=== PATIENT | male | born 1995 | race Caucasian/White ===

== ENCOUNTER 2024-04-24 10:30 | Inpatient (IN) | payer OTHER, SELFPAY ==
[2024-04-24] VITALS (12 sets, daily range): BP systolic 143–164; BP diastolic 90–117; BMI 19.5; BMI 29.0
[2024-04-24 06:40] LABS: % Basophils 0.2 % (0-2); % Immature Granulocytes 0.8 % (0-0.5); % Lymphocytes 6.1 % (20.5-51.1); % Monocytes 10.4 % (1.7-9.3); % Neutrophils 82.5 % (42.2-75.2); Absolute Immature Granulocytes 0.1 10^3/uL (0-0.05); Absolute Monocytes 1.7 10^3/uL (0.1-0.6); Absolute Neutrophils 13.7 10^3/uL (1.4-6.5); Hemoglobin 17.2 g/dL (13.0-18.0); Mean Corp Hgb Conc. 37.4 g/dL (33.0-37.0); Mean Corpuscular Hgb 32.7 pg (27.0-31.0); Mean Corpuscular Volume 87.5 fL (80.0-94.0); Mean Platelet Volume 8.5 fL (7.4-10.4); Nucleated Red Blood Cells % 0 % (-); Platelet Count 218 10^3/uL (130-400); Red Blood Cell Count 5.26 10^6/uL (4.70-6.10); Red Cell Dist. Width 11.5 % (11.5-14.5); White Blood Cell Count 16.6 10^3/uL (4.8-10.8)
--- NOTE | 2024-04-24 06:52 | ED.GENMED ---
History of Present Illness
General
Chief Complaint: Abdominal Symptoms
Source: patient
Exam Limitations: none
Time Seen by Provider: 04/24/24 06:46
History of Present Illness
History of Present Illness:
See MDM
Past History
Past History
ED Past Medical History: Negative Asthma, HTN, Hypercholesterolemia or NIDDM
ED Past Surgical History: None
Social History
Tobacco: Smoker
Alcohol: Occasional
Personal: Single
Living: with family
Phy Exam
Physical Exam
Physical Exam:
See MDM
Sepsis
Sepsis Screening
Sepsis Assessment: Sepsis Ruled Out
Sepsis Screen
Sepsis Screen: Sepsis Ruled Out
Date: 04/24/24
Time: 08:59
Course
Orders/Labs/Results
Orders:
Orders
04/24/24 06:30
Electrocardiogram (*1) Urgent
Reason for Study: Chest Pain
EKG- Treatment ONCE
04/24/24 06:31
Complete Blood Count/With Diff Urgent
Comprehensive Metabolic Panel Urgent
Lipase Urgent
Comment: ADD ON
04/24/24 06:51
Add On- LAB Urgent
Tests Added?: lipase
0.9% Sodium Chloride 1000 ml [Nss] 1,000 ml IV BOLUS
Ketorolac [Toradol] 30 mg IV NOW STA
Ondansetron Injectable [Zofran] 4 mg IV NOW STA
04/24/24 06:52
CT Abd/pelvis W Iv Cont Urgent
Comment:
Reason For Exam: general abd pain, vomiting
04/24/24 07:46
0.9% Sodium Chloride 1000 ml [Nss] 1,000 ml IV BOLUS
Morphine Sulfate 4 mg IV NOW STA
Abnormal Lab Results
04/24/24
06:31
WBC 16.6 H 10^3/uL
(4.8-10.8)
MCH 32.7 H pg
(27.0-31.0)
MCHC 37.4 H g/dL
(33.0-37.0)
Abs Immat Gran (auto) 0.1 H 10^3/uL
(0-0.05)
Absolute Neuts (auto) 13.7 H 10^3/uL
(1.4-6.5)
Absolute Lymphs (auto) 1.0 L 10^3/uL
(1.2-3.4)
Absolute Monos (auto) 1.7 H 10^3/uL
(0.1-0.6)
Immature Gran % 0.8 H %
(0-0.5)
Neutrophils % 82.5 H %
(42.2-75.2)
Lymphocytes % 6.1 L %
(20.5-51.1)
Monocytes % 10.4 H %
(1.7-9.3)
Sodium 131 L mmol/L
(135-145)
Chloride 96 L mmol/L
(98-107)
Carbon Dioxide 21 L mmol/L
(22-30)
Glucose 166 H mg/dl
(70-99)
Total Bilirubin 2.3 H mg/dl
(0.2-1.3)
ALT 68 H U/L
(0-50)
Total Protein 8.3 H g/dl
(6.3-8.2)
Albumin 5.1 H g/dl
(3.5-5.0)
Lipase 1880 H* U/L
(23-300)
04/24/24 06:31
04/24/24 06:31
Vital Signs
Initial and Last Documented VS:
Initial Vital Signs
Temp Pulse Resp BP Pulse Ox
98.3 F 130 22 143/106 99
04/24/24 05:55 12/19/24 05:55 04/24/24 05:55 04/24/24 05:55 04/24/24 05:55
Last Documented Vital Signs
Temp Pulse Resp BP Pulse Ox
98.3 F 104 18 154/102 96
04/24/24 05:55 04/24/24 08:30 04/24/24 08:30 04/24/24 08:11 04/24/24 08:30
MDM/Problems Addressed
Differential Diagnosis Includes:
HPI and MDM Narrative:
28-year-old male presenting for evaluation of nausea, vomiting and generalized abdominal pain. He did follow-up with his primary care doctor and was prescribed Zofran ODT. He was told to go to urgency department if he continues to vomit despite
taking the medicine. Patient states he has been unable to keep any fluid down and has lost 5 pounds. On exam, he is uncomfortable and clinically dehydrated. He is tachycardic due to discomfort and dehydration. He has abdominal bloating with
generalized tenderness. Given the ongoing symptoms, will give IV fluids, IV Zofran and IV Toradol. Due to the abdominal pain, will obtain CT abdomen/pelvis. He is aware that the ongoing diagnosis is likely viral gastroenteritis
Physical exam
General: Mildly uncomfortable
HEENT: protecting airway. Dry mucous membrane
Neck: appears supple
CV: No evidence of cyanosis. Tachycardic
Resp: No accessory muscle use
Abd: Abdominal bloating and generalized tenderness without localized rebound
Extremities: No deformities
Neuro: alert
Psych: Normal affect
Skin: Intact
Problems Addressed including Acute and Chronic Conditions affecting care:
1. Nausea, vomiting abdominal pain
Acuity: acute
Prognosis: stable
Details: Likely in the viral gastroenteritis. Given his inability to hold down any fluids, will give IV fluids. Will obtain CT abdomen/pelvis
Updates
Patient found to have an elevated lipase level. I question his alcohol intake. Patient states that he recently started drinking more alcohol. Patient still tachycardic and uncomfortable. Will provide more IV fluids and will give IV morphine to
treat pancreatitis
Differential Diagnosis (but not limited to): Enteritis, colitis, acute appendicitis
Testing considered: Chest x-ray
Drug therapy (if applicable): OTC meds, please see d/c instruction regarding Rx drugs
Amount and/or Complexity of Data Reviewed
Clinical info obtained from: Patient
External data reviewed: N/A
Labs I independently reviewed (but not limited to): Leukocytosis, elevated lipase
Radiology: The CT scan was personally and independently reviewed. In addition, official CT report reviewed.
Pulse Ox: not hypoxic
EKG independently reviewed: Sinus tachycardia, normal axis, no STEMI
Manager Architectural: Sinus tachycardia
Critical Care: N/A
Risk of Complication:
Social Determinants of health: Good social support
Discussed with other providers: N/A
Escalation of Care includes Admit/Obs: After being observed in the Emergency Department, pt stable for discharge.
Occasional wrong word or 'sound a like' substitutions may have occurred due to the inherent limitations of voice recognition software. Read the chart carefully and recognize, using context, where substitutions have occurred.
*Critical Care Note
Total Time (30-74mins, 75-104mins- exclusive of procedures): Not Applicable
ED Attending Note
-
Portions of this chart may have been created with voice recognition software.� Occasional wrong word or��sound alike� substitutions may have occurred due to the inherent limitations of voice recognition software.
Discharge Plan
Departure
Patient Disposition: Admit
Date of Disposition: 04/24/24
Time of Disposition: 08:58
Admit to: Med/Surg
Presentation/result/management discussed w/ accepting MD/DO: Hospitalist
Discharge Problem:
Pancreatitis
Prescriptions:
No Action
trazodone 50 mg Tablet
50 mg PO HS
levetiracetam [Keppra] 500 mg Tablet
250 mg PO DAILY
clonazepam 0.5 mg Tablet
0.5 mg PO DAILYPRN PRN (Reason: anixety)
ondansetron [Zofran ODT] 4 mg Tablet,Disintegrating
4 mg PO Q6HPRN PRN (Reason: nausea)
buspirone [BuSpar] 15 mg Tablet
15 mg PO BID
Referrals:
Shaji Amaro MD [Family Provider] -
Interventions
Interventions:
*Risk Screen - Suicide Last Done: 04/24/24 06:14
*General Assessment Last Done: 04/24/24 05:55
*Neglect/Abuse Screening Last Done: 04/24/24 06:14
ED- Fall Risk Assessment Last Done: 04/24/24 06:14
*ED COVID-19 Vaccine History Last Done: 04/24/24 05:55
BY-Jqprkc-Arqpkpaixs Assessment Last Done: 04/24/24 07:30
Discharge Date and Time
Print Language: ETHIOPIAN
[2024-04-24 06:58] LABS: ALT (SGPT) 68 U/L (0-50); AST (SGOT) 57 U/L (17-59); Albumin 5.1 g/dl (3.5-5.0); Alkaline Phosphatase 72 U/L (38-126); Blood Urea Nitrogen 20 mg/dl (9-20); Calcium 9.7 mg/dl (8.4-10.2); Carbon Dioxide 21 mmol/L (22-30); Chloride 96 mmol/L (98-107); Estimated Creatinine Clearance 116 ml/min; Glucose 166 mg/dl (70-99); Potassium 3.7 mmol/L (3.5-5.1); Sodium 131 mmol/L (135-145); Total Bilirubin 2.3 mg/dl (0.2-1.3); Total Protein 8.3 g/dl (6.3-8.2); eGFR > 60.00
[2024-04-24] MEDS: ZOFRAN 4 MG IV ×2 (07:01→20:17)
[2024-04-24] MEDS: TORADOL 30 MG IV (07:01)
[2024-04-24] MEDS: NSS 1000 IV ×4 (07:01→17:31)
[2024-04-24 07:18] LABS: Lipase 1880 U/L (23-300)
[2024-04-24] MEDS: MORPHINE SULFATE 4 MG IV (07:54)
--- NOTE | 2024-04-24 09:20 | HPS.HSE ---
Addendum entered and electronically signed by Walter Perry MD 04/24/24 23:31:
Attending Addendum-
I performed a history and physical exam of the patient and discussed his management with the resident. I reviewed the resident's note and agree with the documented findings and plan of care CC/HPI- Presents to ED with 2 days of intractable vomitting
nausea and abd pain. Has recently come off a binge of ETOH use over last weekend and 'slowed down' by drinking etoh seltzers. Last drink two days ago per patient. Seen with sig other. Feels thirsty and abd pain greatly improved after pain meds. No
fevers chills. Full 12 point ROS reviewed and negative except as documented Exam- vitals reviewed in EMR GEN-NAD heart tachycardic lungs clear abd soft mildly distended LE no edema
Plan:
# SIRS from Acute Pancreatitis
- NPO
- aggressive IVF resuscitation
- pain control
- CT a/p-Pancreatic/peripancreatic inflammatory changes compatible with acute pancreatitis without accompanying well-formed abnormal focal fluid collection to suggest a pseudocyst.
- no indication for abx
- repeat lipase in am
# AUD
- hx of w/d seizures x 2
- high risk W/D
- MSAS
- c/s SW and [facility]
# Nicotine Abuse via Vape
- advised to quit
# Anxiety
- cont buspar clonazepam and trazodone
- PDMP reviewed
# Hyponatremia
- from etoh abuse
- trend BMP
- cont IVF
# Seizure D/O from ETOH w/d
- cont keppra
# Leukocytosis
- from stress/inflammation
- repeat CBC in am
# Marijuana use
CODE- Full
Time spent coordinating care, review of plan of care with resident, personally reviewed previous records in EMR, med rec, labs, radiology, d/w nursing, GF�- 78 mins
Original Note:
Family Physician
<Cesia Metzger DO, Resident - Last Filed: 04/24/24 14:47>
-
Family Physician: Shaji Amaro MD
Chief Complaint
<Cesia Metzger DO, Resident - Last Filed: 04/24/24 14:47>
-
Vomiting, abdominal pain
History of Present Illness
Mr. Nilo Lo is a 28yo male pmh fatty liver disease, seizures from alcohol withdrawal, and alcohol use disorder being admitted for acute pancreatitis. He used to drink a 750-mL bottle of vodka daily, but has cut it back to a 200-300mL flask.
His last drink was an alcoholic seltzer on Sunday. This is because he started vomiting uncontrollably Sunday. He has been unable to keep liquids down. He has diffuse abdominal pain and feels his stomach is tense and bloated. He feels
dehydrated and warm. He also has a sharp pain in his stomach when he breathes too deeply. +fatigue, bloating, tremors. -hallucinations
Medical History
<Cesia Metzger DO, Resident - Last Filed: 04/24/24 14:47>
Past Medical History
Past Medical History: Reports Seizures (from alcohol withdrawal) and Other (fatty liver disease, alcohol use disorder, anxiety)
Past Surgical History: Reports Other (hernia at 3yrs old)
Social History
Tobacco: Vaping
Alcohol: Chronic Alcoholic
Drug: Former User and Marijuana
Personal:
Living: With Family
Employment: Employed (general warehouse worker)
Family History
Family History: Not pertinent
Allergies / Home Medications
Allergies reflects when Allergies were last updated in [facility].
Home Medications with original date entered in [facility]
Allergy/Medication List:
Allergies
Allergy/AdvReac Type Severity Reaction Status Date / Time
No Known Allergies Allergy Unverified 05/07/16 12:17
Home Medications
buspirone 15 mg tablet 15 mg PO BID Neurological Condition 04/24/24
clonazepam 0.5 mg tablet 0.5 mg PO DAILYPRN PRN anixety 04/24/24
levetiracetam 500 mg tablet (Keppra) 250 mg PO DAILY Neurological Condition 04/24/24
ondansetron 4 mg disintegrating tablet 4 mg PO Q6HPRN PRN nausea 04/24/24
trazodone 50 mg tablet 50 mg PO HS Neurological Condition 04/24/24
Review of Systems
<Cesia Metzger DO, Resident - Last Filed: 04/24/24 14:47>
-
Constitutional: Reports Weight Loss, Fatigue and Sleep Disturbance
EENT: Reports No Symptoms
Respiratory: Reports No Symptoms
Cardiac: Reports No Symptoms
Abdomen/GI: Reports Abdominal Pain, Nausea, Vomiting and Other (no hematochezia); Denies Diarrhea, Constipated or Bloody Stools
: Reports No Symptoms
Musculoskeletal: Reports No Symptoms
Skin: Reports No Symptoms
Neurological: Reports No Symptoms
Endocrine: Reports No Symptoms
Hematologic/Lymphatic: Reports No Symptoms
Psych: Reports No Symptoms
Physical Exam
<Cesia Metzger DO, Resident - Last Filed: 04/24/24 14:47>
Vital Signs
Vital Signs
Temp Pulse Resp BP Pulse Ox
98.3 F 104 18 154/102 96
04/24/24 05:55 04/24/24 08:30 04/24/24 08:30 04/24/24 08:11 04/24/24 08:30
Physical Exam
General: Well Developed and Well Nourished
HEENT: NormoCephalic, Anicteric, Atraumatic, PERRLA and Other (dry mucus membranes)
Respiratory: Clear and Non Labored Respirations
Cardiac: S1/S2, Regular Rhythm and Tachycardia; No Murmur, Rub, Gallop or Peripheral Edema
GI: Tender (diffuse, LLQ) and Distended
Musculoskeletal: No Clubbing, No Cyanosis and No Edema
Skin: Warm and Other (diaphoretic)
Neuro: AO x 3
Psych: Calm
Laboratory Results
<Cesia Metzger DO, Resident - Last Filed: 04/24/24 14:47>
-
04/24/24 06:31
04/24/24 06:31
Laboratory Results
Total Bilirubin 2.3 mg/dl (0.2-1.3) H 04/24/24 06:31
AST 57 U/L (17-59) 04/24/24 06:31
ALT 68 U/L (0-50) H 04/24/24 06:31
Alkaline Phosphatase 72 U/L (38-126) 04/24/24 06:31
Lipase 1880 U/L (23-300) H* 04/24/24 06:31
Impression/Plan
<Cesia Metzger DO, Resident - Last Filed: 04/24/24 14:47>
-
IMPRESSION:
Mr. Nilo Lo is a 28yo male pmh fatty liver disease, seizures from alcohol withdrawal, and alcohol use disorder admitted for acute pancreatitis.
PLAN:
Acute pancreatitis secondary to alcohol use disorder
- lipase 1880
- ECG: sinus tachycardia
- CT abdo/pelvis: Pancreatic/peripancreatic inflammatory changes compatible with acute pancreatitis, sigmoid diverticulitis
- Mile's criteria: 0
- ivf
- zofran
- analgesia
Alcohol use disorder
- MSAS
- thiamine, folic acid
- check folate, Mg, vit B12, B-hydroxybutyrate, GGTP, phosphorus, PT, PTT, u/a, urine drug screen
Fatty Liver disease
- likely secondary to chronic alcohol use
Anxiety
- cont home buspar, clonazepam
Seizures
- cont levetiracetam
- avoid drugs that lower seizure threshold
Diet: NPO
DVT prophylaxis: lovenox
Code status: FULL CODE
<Haleigh Dickson MD, Resident - Last Filed: 04/24/24 19:06>
-
IMPRESSION:
Mr. Nilo Lo is a 28yo male pmh fatty liver disease, seizures from alcohol withdrawal, and alcohol use disorder admitted for acute pancreatitis.
PLAN:
Acute pancreatitis secondary to alcohol use disorder
- lipase 1879
- ECG: sinus tachycardia
- CT abdo/pelvis: Pancreatic/peripancreatic inflammatory changes compatible with acute pancreatitis, sigmoid diverticulitis
- Fowler's criteria: 0
- ivf
- zofran
- morphine for pain
Alcohol use disorder
- MSAS
- thiamine, folic acid
- check folate, Mg, vit B12, B-hydroxybutyrate, GGTP, phosphorus, PT, PTT, u/a, urine drug screen
Fatty Liver disease
- likely secondary to chronic alcohol use
Anxiety
- cont home buspar, clonazepam
Seizures
- cont levetiracetam
- avoid drugs that lower seizure threshold
Diet: NPO
DVT prophylaxis: lovenox
Code status: FULL CODE
[2024-04-24 11:04] LABS: GGTP 224 U/L (15-73); Magnesium 1.9 mg/dl (1.6-2.3); Phosphorus 2.6 mg/dl (2.5-4.5)
[2024-04-24 11:05] LABS: Alcohol None Detected
[2024-04-24 11:06] LABS: INR 1.01; PT 13.8 Sec (11.4-14.6)
[2024-04-24 11:07] LABS: APTT 32.9 Sec (23.4-35.0)
[2024-04-24 11:10] LABS: B-Hydroxybutyrate 0.18 mmol/L (0.02-0.27)
[2024-04-24] MEDS: FOLVITE 50.2 MG IV (11:59)
[2024-04-24] MEDS: THIAMINE INJECTION 200 MG IV ×2 (12:15→20:35)
[2024-04-24] MEDS: TORADOL 15 MG IV ×2 (15:15→22:23)
[2024-04-24 15:37] LABS: Folate 18.3 ng/ml (2.76-20); Vitamin B12 399 pg/ml (239-931)
[2024-04-24 17:48] LABS: Urine Albumin 1+ (Neg - Trace); Urine Bilirubin Negative (Negative); Urine Character Clear (Clear); Urine Color Amber; Urine Glucose Negative (Negative); Urine Ketone Negative (Negative); Urine Leukocyte Negative (Negative); Urine Nitrite Negative (Negative); Urine Occult Blood Trace (Negative); Urine Specific Gravity 1.015 (<1.030); Urine Urobilinogen 1+ (Neg - 1+)
[2024-04-24 18:05] LABS: Urine Mucus Few; Urine Squamous Cell None seen /LPF (Few)
[2024-04-24 18:06] LABS: Urine Hyaline Cast 0-2 /LPF (0-2); Urine Red Blood Cell 0-2 /HPF (0-2); Urine White Cell None Seen /HPF (0-5)
[2024-04-24 18:09] LABS: Amphetamines Negative (Negative); Barbiturates Negative (Negative); Benzodiazepines Negative (Negative); Buprenorphine Negative (Negative); Cocaine Negative (Negative); Marijuana Positive (Negative); Methadone Negative (Negative); Methamphetamines Negative (Negative); Opiates Positive (Negative); Phencyclidine Negative (Negative); Tricyclic Antidepressants Negative (Negative)
[2024-04-24 18:24] LABS: Fentanyl, Urine Negative (Negative)
[2024-04-24] MEDS: MORPHINE SULFATE 1 MG IV (20:34)
[2024-04-25] MEDS: NSS (PRESERVATIVE FREE) 10 ML IV
[2024-04-25] MEDS: NSS 1000 IV ×4 (00:01→23:48)
[2024-04-25] MEDS: NSS (PRESERVATIVE FREE) 0.5 ML IV ×2 (00:52→20:31)
[2024-04-25] MEDS: ATIVAN 1 MG IV ×4 (00:52→20:31)
[2024-04-25] MEDS: MORPHINE SULFATE 1 MG IV (03:22)
[2024-04-25 03:40] VITALS: BP 152/94
[2024-04-25] MEDS: THIAMINE INJECTION IV (05:00)
[2024-04-25] MEDS: TORADOL 15 MG IV ×3 (06:49→18:39)
[2024-04-25] MEDS: ZOFRAN 4 MG IV ×2 (06:49→16:35)
[2024-04-25 07:22] VITALS: BP 119/67
--- NOTE | 2024-04-25 07:58 | W.PN.HOSP.TC ---
Addendum entered and electronically signed by Walter Perry MD 04/25/24 22:01:
Attending Addendum-
I saw and evaluated the patient. I reviewed the resident�s note and agree with findings and plan as documented in the resident�s note. Sub: feels improved feels hungry and thirsty. Abd pain still present but greatly improved. Full 12 point ROS
reviewed and negative except as documented Exam- vitals reviewed in EMR GEN-NAD heart RRR lungs clear abd soft mildly distended mildly TTP LLQ no rebound / guarding LE no edema
Plan:
# Acute Pancreatitis - SIRS
- sxs improving lipase trending down 1880->612
- advance to [facility]
- cont IVF
- pain control
- CT a/p-Pancreatic/peripancreatic inflammatory changes compatible with acute pancreatitis without accompanying well-formed abnormal focal fluid collection to suggest a pseudocyst.
- repeat lipase in am
# AUD
- hx of w/d seizures x 2
- cont thiamine , folate
- cont keppra
- restart clonazepam
- high risk W/D
- MSAS-2
# Hypokalemia
- replete
- recheck BMP in am
# Nicotine Abuse via Vape
- advised to quit
# Anxiety
- restart buspar trazodone and standing clonazepam
- PDMP reviewed
# Hyponatremia
- from etoh abuse
- resolving
- trend BMP
- cont IVF
# Seizure D/O from ETOH w/d
- cont keppra
# Leukocytosis
- resolving
- from stress/inflammation
- repeat CBC in am
# Marijuana use
CODE- Full
Time spent coordinating care, review of plan of care with resident, personally reviewed records in EMR, med rec, consults, notes, labs, radiology, d/w nursing � 59 mins
Original Note:
Today's Communication/Plan
-
.
Assessment / Plan
Assessment / Plan
Mr. Nilo Lo is a 28yo male pmh fatty liver disease, seizures from alcohol withdrawal, and alcohol use disorder admitted for acute pancreatitis.
Acute pancreatitis
- secondary to alcohol use disorder
- advance diet as tolerated
- lipase 1880, improving
- CT abdo/pelvis: Pancreatic/peripancreatic inflammatory changes compatible with acute pancreatitis, sigmoid diverticulitis
- ivf
- zofran
- morphine for pain
Alcohol use disorder
- hx of 2 withdrawal seizures
- cont levitiracetam
- avoid drugs that lower the seizure threshold
- MSAS
- thiamine, folic acid
- folate, Mg, vit B12, B-hydroxybutyrate, GGTP, phosphorus, PT, PTT, u/a - wnl
- urine drug screen (+) opiates, marijuana. Opiate positivity likely due to fact urine obtained after pain medicine given in ED
Fatty Liver disease
- likely secondary to chronic alcohol use
Anxiety
- hold home buspar, clonazepam
- lorazepam
Hyponatremia
- improving
- likely secondary to EtOH use
Hypokalemia
- replete
Diet: clear liquids
DVT prophylaxis: lovenox
Code status: FULL CODE
Anticipated Discharge: Within 24 hours
Subjective/Interval History
-
Date of Service: April 25, 2024
Mr. Nilo Lo is a 28yo male pmh fatty liver disease, seizures from alcohol withdrawal, and alcohol use disorder admitted for acute pancreatitis. Pt feeling better this morning. Last n/v last night. Tolerating ice chips. Tolerating clear
liquids. Could not advance to full liquids and felt unwell long term through.
Objective Data
-
Labs:
Laboratory Results
04/25/24
07:38
WBC Pending
Hgb Pending
Hct Pending
Plt Count Pending
Sodium Pending
Potassium Pending
Chloride Pending
Carbon Dioxide Pending
BUN Pending
Creatinine Pending
Glucose Pending
Calcium Pending
Total Bilirubin Pending
AST Pending
ALT Pending
Alkaline Phosphatase Pending
Vital Signs:
Vital Signs
Temp Pulse Resp BP Pulse Ox
98.5 F 124 18 152/94 96
04/25/24 06:30 04/25/24 03:40 04/25/24 03:40 04/25/24 03:40 04/25/24 03:40
I&O
04/24/24 04/25/24 04/26/24
06:59 06:59 06:59
Intake Total 480 / 480 1500 / 1500
Balance 480 / 480 1500 / 1500
Review of Systems
-
History Source: Patient
Constitutional: Reports No Symptoms
EENT: Reports No Symptoms Reported
Respiratory: Reports No Symptoms
Cardiac: Reports No Symptoms
Abdomen/GI: Reports Abdominal Pain, Nausea and Vomiting; Denies Diarrhea or Constipated
Genitourinary: Reports No Symptoms
Musculoskeletal: Reports No Symptoms
Skin: Reports No Symptoms
Neuro: Reports No Symptoms
Physical Exam
-
General: Well Developed and Well Nourished
HEENT: Normocephalic, Atraumatic and Moist Mucous Membranes
Respiratory: Clear to Auscultation; Negative Wheezes, Rales or Rhonchi
Cardiac: Regular Rhythm and S1/S2; Negative Murmur, Rub or Gallop
GI: Tender, Distended and No Hepatosplenomegaly
Musculoskeletal: No Clubbing, No Cyanosis and No Edema
Skin: Warm and Dry
Neuro: AO x 3
[2024-04-25] MEDS: KEPPRA 250 MG IV (08:17)
[2024-04-25 08:41] LABS: % Basophils 0.2 % (0-2); % Immature Granulocytes 0.8 % (0-0.5); % Lymphocytes 5.3 % (20.5-51.1); % Monocytes 10.7 % (1.7-9.3); Absolute Immature Granulocytes 0.1 10^3/uL (0-0.05); Absolute Lymphocytes 0.6 10^3/uL (1.2-3.4); Absolute Monocytes 1.2 10^3/uL (0.1-0.6); Absolute Neutrophils 9.5 10^3/uL (1.4-6.5); Hemoglobin 13.2 g/dL (13.0-18.0); Mean Corp Hgb Conc. 34.7 g/dL (33.0-37.0); Mean Corpuscular Hgb 32.7 pg (27.0-31.0); Mean Corpuscular Volume 94.1 fL (80.0-94.0); Nucleated Red Blood Cells % 0 % (-); Red Blood Cell Count 4.04 10^6/uL (4.70-6.10); Red Cell Dist. Width 11.9 % (11.5-14.5); White Blood Cell Count 11.5 10^3/uL (4.8-10.8)
[2024-04-25 09:03] LABS: ALT (SGPT) 36 U/L (0-50); AST (SGOT) 32 U/L (17-59); Albumin 3.6 g/dl (3.5-5.0); Alkaline Phosphatase 55 U/L (38-126); Blood Urea Nitrogen 8 mg/dl (9-20); Calcium 8.3 mg/dl (8.4-10.2); Carbon Dioxide 21 mmol/L (22-30); Chloride 100 mmol/L (98-107); Estimated Creatinine Clearance > 125 ml/min; Glucose 81 mg/dl (70-99); Lipase 612 U/L (23-300); Potassium 3.3 mmol/L (3.5-5.1); Sodium 133 mmol/L (135-145); Total Bilirubin 1.7 mg/dl (0.2-1.3); Total Protein 6.3 g/dl (6.3-8.2); eGFR > 60.00
[2024-04-25 11:22] VITALS: BP 136/96
[2024-04-25] MEDS: THIAMINE INJECTION 200 MG IV ×2 (12:36→20:31)
[2024-04-25] MEDS: FOLVITE 50.2 MG IV (12:36)
[2024-04-25 15:25] VITALS: BP 151/105
--- NOTE | 2024-04-25 15:28 | CM ---
Pt seen bedside. Initial assessment completed.
Pt lives w/ spouse in a 2STH-2 steps to enter
Pt is independent, denies DME use for ambulating or daily functioning
Denies SNF/VN/PT
Address, point of contacts and insurance verified
PCP: Dr. Shaji Amaro
Pharmacy: [facility]
CM consulted for substance counseling for alcohol withdrawal. CM discussed potential D&A resource needs w/ pt. Pt stated 'this is a wake up call' and that he 'destroyed his pancreas' and that he does not need any resources as he is done drinking. Pt
was visibly upset speaking w/ CM due to medical condition as result of his drinking. CM provided support at this time and encouraged pt to reach out to CM if he needs any counseling or any other support.
Plan: Home; no needs
--- NOTE | 2024-04-25 18:08 | PTCARENOTE ---
pt was having nausea & vomiting and refused to take his K+ pill. Will notify on coming shift
[2024-04-25 19:29] VITALS: BP 137/90
[2024-04-25 22:49] VITALS: BP 123/93
[2024-04-25] MEDS: DESYREL 50 MG PO (22:57)
[2024-04-25] MEDS: KLONOPIN 0.25 MG PO (23:19)
[2024-04-26] MEDS: TORADOL 15 MG IV ×3 (02:13→17:03)
[2024-04-26 03:51] VITALS: BP 145/91
[2024-04-26] MEDS: THIAMINE INJECTION IV (04:51)
[2024-04-26] MEDS: NSS 1000 IV ×4 (06:49→21:12)
[2024-04-26 07:10] VITALS: BP 142/98
[2024-04-26 07:37] LABS: Hematocrit 32.3 % (39.0-52.0); Hemoglobin 11.8 g/dL (13.0-18.0); Mean Corp Hgb Conc. 36.5 g/dL (33.0-37.0); Mean Corpuscular Hgb 33.1 pg (27.0-31.0); Mean Corpuscular Volume 90.7 fL (80.0-94.0); Red Blood Cell Count 3.56 10^6/uL (4.70-6.10); Red Cell Dist. Width 11.1 % (11.5-14.5); White Blood Cell Count 8.3 10^3/uL (4.8-10.8)
[2024-04-26] MEDS: KLONOPIN 0.25 MG PO ×2 (07:54→21:09)
[2024-04-26] MEDS: KEPPRA 250 MG PO (07:54)
[2024-04-26] MEDS: BUSPAR 15 MG PO ×2 (07:55→21:09)
[2024-04-26 08:12] LABS: ALT (SGPT) 29 U/L (0-50); AST (SGOT) 31 U/L (17-59); Albumin 3.2 g/dl (3.5-5.0); Alkaline Phosphatase 60 U/L (38-126); Blood Urea Nitrogen 7 mg/dl (9-20); Calcium 8.2 mg/dl (8.4-10.2); Carbon Dioxide 26 mmol/L (22-30); Chloride 97 mmol/L (98-107); Estimated Creatinine Clearance > 125 ml/min; Glucose 84 mg/dl (70-99); Lipase 418 U/L (23-300); Potassium 3.1 mmol/L (3.5-5.1); Sodium 132 mmol/L (135-145); Total Bilirubin 2.9 mg/dl (0.2-1.3); Total Protein 5.9 g/dl (6.3-8.2); eGFR > 60.00
--- NOTE | 2024-04-26 08:58 | W.PN.HOSP.TC ---
Today's Communication/Plan
-
see bold
Assessment / Plan
Assessment / Plan
Mr. Nilo Lo is a 28yo male pmh fatty liver disease, seizures from alcohol withdrawal, and alcohol use disorder admitted for acute pancreatitis.
Acute pancreatitis
- Secondary to alcohol use disorder
- CT abdo/pelvis: Pancreatic/peripancreatic inflammatory changes compatible with acute pancreatitis, sigmoid diverticulitis
- Continue clear liquid diet, IV fluids, antiemetics, pain meds
Alcohol use disorder
- hx of 2 withdrawal seizures
- cont levitiracetam
- avoid drugs that lower the seizure threshold
- MSAS, thiamine, folic acid
- folate, Mg, vit B12, B-hydroxybutyrate, GGTP, phosphorus, PT, PTT, u/a - wnl
- urine drug screen (+) opiates, marijuana. Opiate positivity likely due to fact urine obtained after pain medicine given in ED
Fatty Liver disease
- likely secondary to chronic alcohol use
- Needs to follow-up with GI outpatient
Anxiety
- hold home buspar, clonazepam
- lorazepam
Hyponatremia
- improving
- likely secondary to EtOH use
Hypokalemia
-Continue to replete, mag 2.2
Diet: clear liquids
DVT prophylaxis: lovenox
Code status: FULL CODE
Total time spent to see the patient on the floor, examine the patient, review data and lab results, discuss treatment plan with patient, nursing staff around 39 minutes.
Physical Exam
General: No acute distress
HEENT: Normocephalic, Atraumatic, EOMI, MMM
Respiratory: Clear to Auscultation bilaterally
Cardiac: Normal S1/S2, Regular Rate and Rhythm
GI: Soft, tender at the epigastrium, Nondistended, Normal Bowel Sounds
Extremities: No Clubbing, Cyanosis, or Edema
Neuro: Nonfocal/Grossly Intact
Psych: Calm, Cooperative
Derm: No Visible lesions
Anticipated Discharge: Within 24 hours
Subjective/Interval History
-
Date of Service: April 26, 2024
Patient continues to have nausea, abdominal pain, and back pain. No vomiting. He is tolerating his clear liquid diet. No chest pain, no shortness of breath. No fever.
Objective Data
-
Labs:
Laboratory Results
04/26/24
06:35
WBC 8.3
Hgb 11.8 L
Hct 32.3 L
Plt Count Pending
Sodium 132 L
Potassium 3.1 L
Chloride 97 L
Carbon Dioxide 26
BUN 7 L
Creatinine 0.6 L
Glucose 84
Calcium 8.2 L
Total Bilirubin 2.9 H D
AST 31
ALT 29
Alkaline Phosphatase 60
Vital Signs:
Vital Signs
Temp Pulse Resp BP Pulse Ox
99.3 F 110 20 145/91 95
04/26/24 03:51 04/26/24 03:51 04/26/24 03:51 04/26/24 03:51 04/26/24 03:51
I&O
04/25/24 04/26/24 04/27/24
06:59 06:59 06:59
Intake Total 480 / 480 4880 / 4880
Balance 480 / 480 4880 / 4880
[2024-04-26 09:40] LABS: Magnesium 2.2 mg/dl (1.6-2.3)
[2024-04-26] MEDS: KCL 40 MEQ PO ×3 (09:40→21:09)
[2024-04-26 11:02] VITALS: BP 152/96
[2024-04-26] MEDS: THIAMINE INJECTION 200 MG IV ×2 (12:17→21:10)
[2024-04-26] MEDS: FOLVITE 50.2 MG IV (12:28)
[2024-04-26] MEDS: ATIVAN 1 MG IV (12:28)
[2024-04-26 15:05] VITALS: BP 151/107
[2024-04-26 19:54] VITALS: BP 155/94
[2024-04-26] MEDS: DESYREL 50 MG PO (21:09)
[2024-04-26] MEDS: MORPHINE SULFATE 1 MG IV (21:58)
[2024-04-26 23:28] VITALS: BP 149/87
[2024-04-27] MEDS: TORADOL 15 MG IV (00:09)
[2024-04-27] MEDS: NSS 1000 IV ×2 (01:28→09:19)
[2024-04-27 03:33] VITALS: BP 133/86
[2024-04-27] MEDS: THIAMINE INJECTION IV (03:56)
[2024-04-27 07:00] VITALS: BP 149/93
[2024-04-27 07:55] LABS: Blood Urea Nitrogen 7 mg/dl (9-20); Calcium 8.4 mg/dl (8.4-10.2); Carbon Dioxide 27 mmol/L (22-30); Chloride 101 mmol/L (98-107); Estimated Creatinine Clearance > 125 ml/min; Glucose 94 mg/dl (70-99); Lipase 493 U/L (23-300); Potassium 3.8 mmol/L (3.5-5.1); Sodium 133 mmol/L (135-145); eGFR > 60.00
[2024-04-27 08:11] LABS: Hemoglobin 11.2 g/dL (13.0-18.0); Mean Corp Hgb Conc. 36.1 g/dL (33.0-37.0); Mean Corpuscular Hgb 33.1 pg (27.0-31.0); Mean Corpuscular Volume 91.7 fL (80.0-94.0); Red Blood Cell Count 3.38 10^6/uL (4.70-6.10); Red Cell Dist. Width 11.3 % (11.5-14.5); White Blood Cell Count 5.9 10^3/uL (4.8-10.8)
--- NOTE | 2024-04-27 08:35 | W.PN.HOSP.TC ---
Today's Communication/Plan
-
Discharge today
Assessment / Plan
Assessment / Plan
Mr. Nilo Lo is a 28yo male pmh fatty liver disease, seizures from alcohol withdrawal, and alcohol use disorder admitted for acute pancreatitis.
Acute pancreatitis
- Secondary to alcohol use disorder
- CT abdo/pelvis: Pancreatic/peripancreatic inflammatory changes compatible with acute pancreatitis, sigmoid diverticulitis
- Pain resolved, tolerating clear liquids
� Medically stable for discharge
� Patient counseled to permanently abstain from drinking alcohol
Alcohol use disorder
- hx of 2 withdrawal seizures
- cont levitiracetam
- avoid drugs that lower the seizure threshold
- MSAS, thiamine, folic acid
- folate, Mg, vit B12, B-hydroxybutyrate, GGTP, phosphorus, PT, PTT, u/a - wnl
- urine drug screen (+) opiates, marijuana. Opiate positivity likely due to fact urine obtained after pain medicine given in ED
Fatty Liver disease
- likely secondary to chronic alcohol use
- Needs to follow-up with GI outpatient
Anxiety
- hold home buspar, clonazepam
- lorazepam
Hyponatremia
- improving
- likely secondary to EtOH use
Hypokalemia
-Repleted and resolved, mag 2.2
Diet: clear liquids
DVT prophylaxis: lovenox
Code status: FULL CODE
Updated mom at bedside 04/27
Physical Exam
General: No acute distress
HEENT: Normocephalic, Atraumatic, EOMI, MMM
Respiratory: Clear to Auscultation bilaterally
Cardiac: Normal S1/S2, Regular Rate and Rhythm
GI: Soft, tender at the epigastrium, Nondistended, Normal Bowel Sounds
Extremities: No Clubbing, Cyanosis, or Edema
Neuro: Nonfocal/Grossly Intact
Psych: Calm, Cooperative
Derm: No Visible lesions
Anticipated Discharge: Today
Subjective/Interval History
-
Date of Service: April 27, 2024
Patient reports feeling better. No abdominal pain at rest. No nausea, no vomiting. No fever. He is eager for discharge.
Objective Data
-
Labs:
Laboratory Results
04/27/24
06:58
WBC 5.9
Hgb 11.2 L
Hct 31.0 L
Plt Count Pending
Sodium 133 L
Potassium 3.8
Chloride 101
Carbon Dioxide 27
BUN 7 L
Creatinine 0.5 L
Glucose 94
Calcium 8.4
Vital Signs:
Vital Signs
Temp Pulse Resp BP Pulse Ox
97.4 F 94 18 133/86 97
04/27/24 03:33 04/27/24 03:33 04/27/24 03:33 04/27/24 03:33 04/27/24 03:33
I&O
04/26/24 04/27/24 04/28/24
06:59 06:59 06:59
Intake Total 4880 / 4880 3480 / 3480
Balance 4880 / 4880 3480 / 3480
[2024-04-27 09:00] LABS: Mean Platelet Volume 9.4 fL (7.4-10.4); Platelet Count 145 10^3/uL (130-400)
[2024-04-27] MEDS: KCL 40 MEQ PO (09:20)
[2024-04-27] MEDS: BUSPAR 15 MG PO (09:20)
[2024-04-27] MEDS: KLONOPIN 0.25 MG PO (09:21)
[2024-04-27] MEDS: KEPPRA 250 MG PO (09:21)
--- NOTE | 2024-04-27 10:59 | W.DCSUMMARY ---
Discharge Summary
Discharge Data
Date of Admission: 04/24/24
Date of Discharge: 04/27/24
-
Pending Results: No
Hospital Course
Discharge diagnosis:
Acute pancreatitis
Alcohol use disorder
Hypokalemia
Hyponatremia
Fatty liver disease
Anxiety
CT abd/pelvis:
Pancreatic/peripancreatic inflammatory changes compatible with acute pancreatitis without accompanying well-formed abnormal focal fluid collection to suggest a pseudocyst.
Sigmoid diverticulosis.
Hospital course:
28-year-old male with a past medical history of alcohol use disorder, and anxiety who was admitted for acute pancreatitis. Patient received supportive treatment with IV fluids, antiemetics, bowel rest, pain meds. After several days, his abdominal
pain resolved. He tolerated a clear liquid diet.
Patient had hypokalemia. This was repleted and resolved. Magnesium levels were normal.
Patient also has fatty liver. He needs to follow-up with GI in the office for monitoring.
Patient is medically stable for discharge. He has been counseled to permanently abstain from drinking alcohol. He reports understanding. He needs to follow-up with his PCP in 1 week, and have a repeat BMP with his PCP at that time to check his
potassium levels.
Disposition: Home self-care
Discharge planning: Required 36 minutes
Discharge Plan
-
Patient Disposition: Home (Routine Discharge)
Discharge Diagnosis/Procedures: acute pancreatitis, alcohol use disorder, fatty liver disease, seizures, nicotine abuse, anxiety, hyponatremia, hypokalemia
Condition: Good
Diet: As tolerated
Additional Diets: Please advance your diet as tolerated back to a regular diet.
Activity: As tolerated
Driving Restrictions: As prior to admission
Bathing Restrictions: None
Blood Work: BMP with PCP in 1 week
Activity Restrictions/Additional Instructions:
It is very important that you permanently abstain from drinking any type of alcohol, otherwise you will have pancreatitis again.
Follow-up with GI in the office for your fatty liver.
Instructions: Acute pancreatitis, [place] Diet, Alcohol withdrawal, Alcohol use disorder - Discharge instructions, Alcohol and your health
Referrals:
Mariana Guerrero MD [Active] - in two to three weeks
Shaji Amaro MD [Family Provider] - in one week
Additional Discharge Medication Instructions: Ondansetron 4 mg tablet every 6 hours as needed for nausea and vomiting.
Prescriptions:
New
ondansetron 4 mg tablet,disintegrating
4 mg PO Q6H PRN (Reason: nausea and vomiting) Qty: 14 0RF
Continued
trazodone 50 mg Tablet
50 mg PO HS
levetiracetam [Keppra] 500 mg Tablet
250 mg PO DAILY
clonazepam 0.5 mg Tablet
0.5 mg PO DAILYPRN PRN (Reason: anixety)
buspirone 15 mg Tablet
15 mg PO BID
Discontinued
ondansetron 4 mg Tablet,Disintegrating
4 mg PO Q6HPRN PRN (Reason: nausea)
Discharge Orders:
Discharge Patient (As Directed); Ordered 04/27/24
Ordered By: Ronal Guerrero
Discharge Date and Time
Discharge Date/Time: 04/27/24 11:23
Print Language: HUNGARIAN
--- NOTE | 2024-04-27 11:06 | CM ---
CM reviewed chart, patient for discharge today. Patient discharging home with mother, no needs.
Plan; home with family, no needs.
== END 2024-04-27 11:23 | disposition home or self-care (01) | DRG 439 ==
LOC: 4 WEST ACU 10:30
PROVIDERS: Emergency Medicine; ADMITTING PHYSICIAN Family Medicine; ATTENDING PHYSICIAN Family Medicine; EMERGENCY PHYSICIAN Student in an Organized Health Care Education/Training Program; FAMILY PHYSICIAN Family Medicine
DX: K85.20 Alcohol induced acute pancreatitis without necrosis or infection (principal); E87.1 Hypo-osmolality and hyponatremia; R65.10 Systemic inflammatory response syndrome (SIRS) of non-infectious origin without acute organ dysfunction; F10.10 Alcohol abuse, uncomplicated; E87.6 Hypokalemia; K70.0 Alcoholic fatty liver; F41.9 Anxiety disorder, unspecified; F17.290 Nicotine dependence, other tobacco product, uncomplicated; G40.909 Epilepsy, unspecified, not intractable, without status epilepticus; E86.0 Dehydration; K57.30 Diverticulosis of large intestine without perforation or abscess without bleeding; D72.829 Elevated white blood cell count, unspecified
CPT/HCPCS: 74177; 80048; 80053; 80306; 80307; 81003; 81015; 82010; 82077; 82607; 82746; 82977; 83690; 83735; 84100; 85025; 85027; 85610; 85730; 93005; 96361; 96374; 96375; 99285; Q9967

== ENCOUNTER 2024-12-03 09:43 | Inpatient (IN) | payer OTHER, SELFPAY ==
[2024-12-02] VITALS (13 sets, daily range): BP systolic 142–170; BP diastolic 92–110; BMI 31.9; BMI 29.0
[2024-12-02 03:14] LABS: Hematocrit 46.1 % (39.0-52.0); Hemoglobin 16.8 g/dL (13.0-18.0); Mean Corp Hgb Conc. 36.4 g/dL (33.0-37.0); Mean Corpuscular Volume 89.3 fL (80.0-94.0); Nucleated Red Blood Cells % 0 % (-); Platelet Count 194 10^3/uL (130-400); Red Cell Dist. Width 11.1 % (11.5-14.5)
[2024-12-02 03:46] LABS: ALT (SGPT) 62 U/L (0-50); AST (SGOT) 40 U/L (17-59); Albumin 5.1 g/dl (3.5-5.0); Alkaline Phosphatase 68 U/L (38-126); Blood Urea Nitrogen 12 mg/dl (9-20); Calcium 10.3 mg/dl (8.4-10.2); Carbon Dioxide 24 mmol/L (22-30); Chloride 102 mmol/L (98-107); Glucose 106 mg/dl (70-99); Lipase 1094 U/L (23-300); Potassium 4.3 mmol/L (3.5-5.1); Sodium 137 mmol/L (135-145); Total Protein 8.8 g/dl (6.3-8.2); eGFR > 60.00
--- NOTE | 2024-12-02 05:26 | ED.GENMED ---
History of Present Illness
General
Chief Complaint: Abdominal Pain
Source: patient
Exam Limitations: none
Time Seen by Provider: 12/02/24 05:21
Nursing documentation reviewed up to this point in time: agreed with
History of Present Illness
History of Present Illness:
Note:
CHIEF COMPLAINT(S)
Abdominal pain
HISTORY OF PRESENT ILLNESS
A 29-year-old male with a past medical history of alcohol use disorder, epilepsy, pancreatitis presented with abdominal pain that began two days prior, on a Sunday night, as mild pain. The pain worsened the following day, and became significantly
more intense by 1:30 AM, prompting him to seek medical attention. The patient reports the pain is localized in the upper abdominal area and described it as feeling like 'my backs like ripping' when vomiting. He experienced vomiting three times while
waiting at the facility, but denies any fever. The patient has a history of pancreatitis in April and states this episode feels different because he vomited for 48 hours straight before seeking hospital care previously, indicating this episodes
severity is comparable but different. He also reports feeling nauseous but denies vomiting blood, instead noting dark-colored bile. He mentioned that he has not eaten since the abdominal pain began, leading to bloating and a feeling of tightness in
the upper abdomen.
CHRONIC MEDICAL CONDITIONS SIGNIFICANTLY AFFECTING CARE
The patient has a history of pancreatitis and is currently taking Keppra for seizure prophylaxis. He has been seizure-free for years.
PAST SURGICAL HISTORY
The patient had a hernia repair during grade school.
MEDICATIONS
Keppra (levetiracetam), daily for seizure prophylaxis
PHYSICAL EXAM
General: Patient is well appearing and in no acute distress; non-toxic
Skin: Warm and dry, no rashes or lesions
Head: Normocephalic, atraumatic
Eyes: Sclera non-icteric. EOMs intact.
Cardiac: Regular rate and rhythm, no murmurs
Peripheral Vascular: No lower extremity swelling or edema
Pulm: Normal respiratory effort, no wheezes, rales, rhonchi
Abdomen: Epigastric abdominal tenderness palpation noted
Neuro: CN II-XII intact, no focal neurologic deficits.
Psychiatric: Appropriate mood and affect.
PROBLEM LIST
Acute: Abdominal pain, suspected pancreatitis
Chronic: Seizure disorder (well-controlled with Keppra)
PLAN
- Obtain a computed tomography (CT) scan to evaluate for potential complications such as gallstones or any obstruction in the pancreatic duct.
- Initiate treatment with intravenous fluids and anti-nausea medication.
- Monitor the patients pain and administer pain control as needed, avoiding medications that may exacerbate any potential underlying gastric issues.
- Consider hospital admission for further management of suspected pancreatitis, given the patients history and presenting symptoms.
DIFFERENTIAL DIAGNOSIS
The Differential Diagnosis includes, in no particular order and is not limited to:
1. Acute pancreatitis
2. Peptic ulcer disease
3. Gallstones (cholelithiasis)
4. Gastritis
5. Gastroesophageal reflux disease (GERD)
6. Small bowel obstruction
7. Abdominal hernia complications
8. Renal colic
9. Gastroenteritis
10. Mesenteric ischemia
MDM/disposition
29-year-old male presents emergency department today with concerns of epigastric abdominal pain. He has acute pancreatitis. He was given lactated Ringer's. He was referred for admission. Labs reviewed, no elevation of LFTs, total bilirubin
normal. He has no leukocytosis. Patient stable for admission.
Past History
Past History
ED Past Medical History: Negative Asthma, HTN, Hypercholesterolemia or NIDDM
ED Past Surgical History: None
Social History
Tobacco: Smoker
Alcohol: Occasional
Personal: Single
Living: with family
Phy Exam
Physical Exam
Physical Exam:
see hpi
Course
Orders/Labs/Results
Orders:
Orders
12/02/24 03:02
Complete Blood Count/With Diff Urgent
Comprehensive Metabolic Panel Urgent
Lipase Urgent
12/02/24 05:36
CT Abd/pelvis W Iv Cont Urgent
Comment:
Reason For Exam: left sided abdominal pain; elevated lipase
Lactated Ringers [Lr] 1,000 ml IV BOLUS
Morphine Sulfate 4 mg IV NOW STA
Ondansetron HCl [Zofran] 4 mg PO NOW STA
12/02/24 05:38
Ondansetron Injectable [Zofran] 4 mg .ROUTE .STK-MED ONE
Ondansetron Injectable [Zofran] 4 mg IV NOW STA
12/02/24 07:05
Morphine Sulfate 4 mg IV NOW PRN
12/02/24 07:07
Morphine Sulfate 4 mg IV NOW STA
12/02/24 07:13
Morphine Sulfate 4 mg IV Q4HPRN PRN
Abnormal Lab Results
12/02/24
03:02
MCH 32.6 H pg
(27.0-31.0)
RDW 11.1 L %
(11.5-14.5)
Absolute Monos (auto) 0.9 H 10^3/uL
(0.1-0.6)
Monocytes % 9.5 H %
(1.7-9.3)
Glucose 106 H mg/dl
(70-99)
Calcium 10.3 H mg/dl
(8.4-10.2)
ALT 62 H U/L
(0-50)
Total Protein 8.8 H g/dl
(6.3-8.2)
Albumin 5.1 H g/dl
(3.5-5.0)
Lipase 1094 H* U/L
(23-300)
12/02/24 03:02
12/02/24 03:02
Vital Signs
Initial and Last Documented VS:
Initial Vital Signs
Temp Pulse Resp BP Pulse Ox
98.5 F 88 16 156/106 98
12/02/24 02:42 12/02/24 02:42 12/02/24 02:42 12/02/24 02:42 12/02/24 02:42
Last Documented Vital Signs
Temp Pulse Resp BP Pulse Ox
98.5 F 95 16 160/96 95
12/02/24 02:42 12/02/24 07:01 12/02/24 07:01 12/02/24 06:57 12/02/24 06:57
*Pulse Oximetry
SaO2: 98
Oxygen Mode of Delivery: Room air
Patient hypoxic: no
*Critical Care Note
Total Time (30-74mins, 75-104mins- exclusive of procedures): Not Applicable
ED Attending Note
-
Portions of this chart may have been created with voice recognition software.� Occasional wrong word or��sound alike� substitutions may have occurred due to the inherent limitations of voice recognition software.
Discharge Plan
Departure
Patient Disposition: Admit
Date of Disposition: 12/02/24
Time of Disposition: 07:05
Admit to: Med/Surg
Presentation/result/management discussed w/ accepting MD/DO: Hospitalist
Condition: Fair
Discharge Problem:
Acute pancreatitis
Prescriptions:
No Action
trazodone 50 mg Tablet
50 mg PO HS
levetiracetam [Keppra] 500 mg Tablet
250 mg PO DAILY
clonazepam 0.5 mg Tablet
0.5 mg PO DAILYPRN PRN (Reason: anixety)
buspirone 15 mg Tablet
15 mg PO BID
ondansetron 4 mg tablet,disintegrating
4 mg PO Q6H PRN (Reason: nausea and vomiting) Qty: 14 0RF
Referrals:
Shaji Amaro MD [Family Provider, Family Practice]
Interventions
Interventions:
*Risk Screen - Suicide Last Done: 12/02/24 02:42
*General Assessment Last Done: 12/02/24 05:28
*Neglect/Abuse Screening Last Done: 12/02/24 05:28
*ED- Fall Risk Assessment Last Done: 12/02/24 05:28
*ED COVID-19 Vaccine History Last Done: 12/02/24 05:28
NX-Vioyns-[id number] Assessment Last Done: 12/02/24 07:02
Discharge Date and Time
Print Language: ESTONIAN
[2024-12-02] MEDS: MORPHINE SULFATE 4 MG IV ×3 (05:40→10:49)
[2024-12-02] MEDS: ZOFRAN 4 MG IV ×3 (05:40→19:15)
[2024-12-02] MEDS: LR 1000 IV ×4 (05:40→23:19)
--- NOTE | 2024-12-02 08:38 | HPS.HSE ---
Addendum entered and electronically signed by Elvis Slater MD 12/02/24 10:43:
I have personally supervised the history, physical exam, medical decision-making, and care plan for this patient in conjunction with the resident. I have reviewed and discussed the resident�s documentation and findings. I confirm that this note
accurately reflects my supervision and input in the care of this patient.
29 y/o M with hx of Alcohol use disorder, prior pancreatitis from Alcohol intake, hx of ETOH withdrawal (with seizure history on Keppra) presents to ER with abd pain, diffuse and also bloating. Pain is epigastric and RUQ, 6/10. Nonradiation. Onset
was Sunday and worsening all day into Sunday prompting ER visit. Patient admits to drinking heavily last week during a trip to [place]; last drink was Sunday.
Physical Exam
General: Well Developed, Well Nourished and Pain (Mild)
HEENT: NormoCephalic, Anicteric and Moist mucous membranes
Respiratory: Clear; No Wheezes, Rales, Rhonchi or Crackles
Cardiac: S1/S2 and Regular Rhythm; No Murmur
GI: Soft, Non Distended and Tender (More prominent in the right upper quadrant)
Musculoskeletal: No Clubbing, No Cyanosis and No Edema
Skin: Warm and Dry
Neuro: Awake, Alert, Oriented and AO x 3
Psych: Calm
Acute, Alcohol-induced pancreatitis
- CT: Findings consistent with acute interstitial that pancreatitis without evidence of peripancreatic collection. There is mild stranding along the second/third portion the duodenum which may represent reactive duodenitis. Mild hepatic steatosis.
- diet: clears; ADAT
- continue aggressive IVF
- pain control and anti-emetics
- follow AM Lipase
Alcohol use disorder
- Last drink on Sat 11/29 per patient
- History of withdrawal with seizures in the past
- MSAS protocol
- consult case management/[facility]
Nicotine abuse/marijuana use
- Nicotine patch
Anxiety
- Continue BuSpar, clonazepam, trazodone
- PDMP reviewed
Hx of Seizure disorder from alcohol withdrawal
- Continue Keppra
DVT ppx: Lovenox
Code: Full
Original Note:
Family Physician
-
Family Physician: Shaji Amaro MD
Chief Complaint
-
Abdominal pain
History of Present Illness
This is a 29-year-old male with past medical history of liver disease, seizures from alcohol withdrawal, alcohol use disorder who presents to [facility] ED complaining of ongoing diffuse abdominal pain and bloating. Patient reports abdominal pain more
prominent on the right upper abdominal quadrant. Reports the pain is a 6 out of 10. Patient reports the pain started on Sunday, and worsened all through yesterday, prompting him to get evaluated in the ED. In addition, patient admits nausea and
one-time episode of vomiting. He reports he is able to keep liquids down. He has denied fevers, chills. Pertinent to his history, patient has a history of seizures from alcohol withdrawal and alcohol use disorder. The patient reports he was in
[place] last week and was drinking throughout his trip. He reports his last drink was on Sunday, and has not had anything to drink in the past 48 hours. Reports he last drank vodka 200 mL total on Wednesday 11/29.
Upon presentation to ED, vitals BP 160/96, pulse 95, respiratory rate 16, temperature 98.5, O2 sat 95% on room air. Laboratory showed CBC unremarkable, BMP with elevated calcium 10.3, AST 40, ALT 62, lipase 1094. He was evaluated with an abdominal
CT scan with findings consistent with pancreatitis without evidence of peripancreatic collection.
Medical History
Past Medical History
Past Medical History: Reports Other (Seizures from alcohol withdrawal, fatty liver disease, alcohol use disorder, anxiety)
Past Surgical History: Reports Other (Hernia repair at the age of 43 years old)
Social History
Tobacco: Vaping (Nicotine)
Alcohol: Chronic Alcoholic
Drug: Marijuana
Personal:
Living: With Family
Employment: Employed
Family History
Family History: Not pertinent
Allergies / Home Medications
Allergies reflects when Allergies were last updated in Evernote.
Home Medications with original date entered in Evernote
Allergy/Medication List:
Allergies
Allergy/AdvReac Type Severity Reaction Status Date / Time
No Known Allergies Allergy Verified 12/02/24 02:41
Home Medications
buspirone 15 mg tablet 15 mg PO BID Neurological Condition 04/24/24
clonazepam 0.5 mg tablet 0.5 mg PO DAILYPRN PRN anixety 04/24/24
trazodone 50 mg tablet 50 mg PO HS Neurological Condition 04/24/24
levetiracetam 250 mg tablet (Keppra) 250 mg PO DAILY 12/02/24
Review of Systems
-
History Source: Patient
Constitutional: Reports See HPI
EENT: Reports No Symptoms
Respiratory: Reports No Symptoms
Cardiac: Reports No Symptoms
Abdomen/GI: Reports Abdominal Pain and Nausea
: Reports No Symptoms
Musculoskeletal: Reports No Symptoms
Skin: Reports No Symptoms
Neurological: Reports No Symptoms
Physical Exam
Vital Signs
Vital Signs
Temp Pulse Resp BP Pulse Ox
98.5 F 95 16 150/97 96
12/02/24 02:42 12/02/24 07:01 12/02/24 07:01 12/02/24 08:00 12/02/24 08:30
Physical Exam
General: Well Developed, Well Nourished and Pain (Mild)
HEENT: NormoCephalic, Anicteric and Moist mucous membranes
Respiratory: Clear; No Wheezes, Rales, Rhonchi or Crackles
Cardiac: S1/S2 and Regular Rhythm; No Murmur
GI: Soft, Non Distended and Tender (More prominent in the right upper quadrant)
Musculoskeletal: No Clubbing, No Cyanosis and No Edema
Skin: Warm and Dry
Neuro: Awake, Alert, Oriented and AO x 3
Psych: Calm
Laboratory Results
-
12/02/24 03:02
12/02/24 03:02
Laboratory Results
Total Bilirubin 1.2 mg/dl (0.2-1.3) 12/02/24 03:02
AST 40 U/L (17-59) 12/02/24 03:02
ALT 62 U/L (0-50) H 12/02/24 03:02
Alkaline Phosphatase 68 U/L (38-126) 12/02/24 03:02
Lipase 1094 U/L (23-300) H* 12/02/24 03:02
Impression/Plan
-
Assessment/plan
#Acute pancreatitis
-Etiology likely alcohol induced pancreatitis given his history and no gallstones on imaging
-Clear liquid
-Aggressive fluid resuscitation with LR
-Pain control with Morphine
-CT abdomen-Findings consistent with acute interstitial that pancreatitis without evidence of peripancreatic collection. There is mild stranding along the second/third portion the duodenum which may represent reactive duodenitis. Mild hepatic
steatosis.
-Repeat lipase in the a.m.
#Alcohol use disorder
-Last drink on Sat 11/29 per patient
-History of withdrawal with seizures in the past
-MSAS protocol
-Consult case management
#Nicotine abuse/marijuana use
-Nicotine patch
#Anxiety
-Continue BuSpar, clonazepam, trazodone
-PDMP reviewed
#Hx of Seizure disorder from alcohol withdrawal
-Continue Keppra
CODE STATUS full code
DVT prophylaxis Lovenox
--- NOTE | 2024-12-02 10:03 | CM ---
CM reviewed chart and met with pt bedside in ED. Lives with his in multistory home.
Independent in ADLs, personal care and ambulation at baseline. No DME
No hx VN/SNF.
Discussed ETOH use, pt states had been sober for 4 months but started drinking on vacation last week in [place]. States he understands he can no longer drink and will quit, offered [facility] but he declined at this time. He is aware they are available
if he wants to talk to someone.
PCP: Shaji Amaro
Pharmacy: [facility] [id number] [address]
CM will continue to follow for any discharge planning needs.
[2024-12-02] MEDS: FOLVITE 1 MG PO (13:27)
[2024-12-02] MEDS: MORPHINE SULFATE 2 MG IV ×3 (15:08→23:12)
[2024-12-02] MEDS: BUSPAR 15 MG PO (20:58)
[2024-12-02] MEDS: THIAMINE INJECTION 200 MG IV (20:59)
[2024-12-02] MEDS: DESYREL 50 MG PO (21:52)
[2024-12-03] MEDS: LR 1000 IV ×4 (04:09→21:10)
[2024-12-03] MEDS: MORPHINE SULFATE 2 MG IV ×2 (04:13→08:20)
[2024-12-03 05:52] LABS: Hematocrit 42.6 % (39.0-52.0); Hemoglobin 15.2 g/dL (13.0-18.0); Mean Corp Hgb Conc. 35.7 g/dL (33.0-37.0); Mean Corpuscular Volume 90.4 fL (80.0-94.0); Platelet Count 158 10^3/uL (130-400); Red Cell Dist. Width 11.3 % (11.5-14.5)
[2024-12-03 06:15] LABS: ALT (SGPT) 37 U/L (0-50); AST (SGOT) 24 U/L (17-59); Albumin 3.9 g/dl (3.5-5.0); Alkaline Phosphatase 53 U/L (38-126); Blood Urea Nitrogen 5 mg/dl (9-20); Calcium 8.8 mg/dl (8.4-10.2); Carbon Dioxide 28 mmol/L (22-30); Chloride 100 mmol/L (98-107); Estimated Creatinine Clearance > 125 ml/min; Glucose 109 mg/dl (70-99); Magnesium 1.9 mg/dl (1.6-2.3); Potassium 3.8 mmol/L (3.5-5.1); Sodium 132 mmol/L (135-145); Total Protein 6.7 g/dl (6.3-8.2); eGFR > 60.00
[2024-12-03 06:22] LABS: Lipase 2275 U/L (23-300)
[2024-12-03 07:30] VITALS: BP 142/94
[2024-12-03] MEDS: KEPPRA 250 MG PO (08:21)
[2024-12-03] MEDS: THIAMINE INJECTION 200 MG IV ×2 (08:22→21:10)
[2024-12-03] MEDS: BUSPAR 15 MG PO ×2 (08:22→21:13)
[2024-12-03] MEDS: FOLVITE 1 MG PO (08:22)
--- NOTE | 2024-12-03 09:35 | W.PN.HOSP.TC ---
Today's Communication/Plan
-
continue IVF
Full liquids
minimize narcs
ambulate
Gas X
trend labs/lipase in AM
Assessment / Plan
Assessment / Plan
Assessment:
Acute, Alcohol-induced pancreatitis
- CT: Findings consistent with acute interstitial that pancreatitis without evidence of peripancreatic collection. There is mild stranding along the second/third portion the duodenum which may represent reactive duodenitis. Mild hepatic steatosis.
- diet: fulls; ADAT
- continue aggressive IVF, LR 200/hour
- pain control and anti-emetics
- Lipase: 1094 to 2275, trend
- for gas pain; start Gas X and minimize narcs. Ambulate/sit in chair as much as possible.
Alcohol use disorder
- Last drink on Sat 11/29 per patient
- History of withdrawal with seizures in the past
- MSAS protocol
- consult case management/[facility]
Nicotine abuse/marijuana use
- Nicotine patch
Anxiety
- Continue BuSpar, clonazepam, trazodone
- PDMP reviewed
Hx of Seizure disorder from alcohol withdrawal
- Continue Keppra
DVT ppx: Lovenox
Code: Full
Anticipated Discharge: > 48 hours
Subjective/Interval History
-
Date of Service: December 03, 2024
reports nausea overnight
tolerating clears
feels gaseous distention
Objective Data
-
Labs:
Laboratory Results
12/03/24
05:24
WBC 11.1 H
Hgb 15.2
Hct 42.6
Plt Count 158
Sodium 132 L
Potassium 3.8
Chloride 100
Carbon Dioxide 28
BUN 5 L
Creatinine 0.7
Glucose 109 H
Calcium 8.8 D
Total Bilirubin 1.5 H
AST 24
ALT 37
Alkaline Phosphatase 53
Vital Signs:
Vital Signs
Temp Pulse Resp BP Pulse Ox
97.9 F 101 16 142/94 97
12/03/24 07:30 12/03/24 07:30 12/03/24 07:30 12/03/24 07:30 12/03/24 07:30
I&O
12/02/24 12/03/24 12/04/24
06:59 06:59 06:59
Intake Total 960 / 960
Balance 960 / 960
Physical Exam
-
General: No Apparent Distress
HEENT: Normocephalic and Atraumatic
Respiratory: Negative Wheezes
Cardiac: Regular Rhythm and S1/S2
GI: Nontender and Distended
Genito-urinary: No Costovertebral Tender
Neuro: AO x 3
Psych: Calm
Data Reviewed
-
Total Time Spent with Patient (in minutes): 45
Labs: Labs Reviewed by me
--- NOTE | 2024-12-03 10:08 | CM ---
TESHA consulted for substance abuse resources. Call placed to [facility] and they have seen him recently and he declined services.
TESHA met with Nilo today, as he had been sober for several months, but recently relapsed while on vacation.
[facility] discussed, however he is declining again at this time. AA resources provided, however he is not interested in this option. Nilo states he has had a wake up call due to his rehospitalization and feels confident that he can stop on his
own. He did mention that his is upset about the relapse, but supportive about not having any alcohol in the home.
Plan: Pt to return home with his at discharge and denies need for substance abuse counseling or services.
[2024-12-03] MEDS: MORPHINE SULFATE 1 MG IV ×3 (11:38→22:59)
[2024-12-03] MEDS: LR IV (15:09)
[2024-12-03 15:30] VITALS: BP 132/88
[2024-12-03] MEDS: DESYREL 50 MG PO (22:57)
[2024-12-03 23:15] VITALS: BP 127/81
[2024-12-04] MEDS: LR 1000 IV ×2 (02:13→09:07)
[2024-12-04 05:52] LABS: Hematocrit 37.5 % (39.0-52.0); Hemoglobin 13.4 g/dL (13.0-18.0); Mean Corp Hgb Conc. 35.7 g/dL (33.0-37.0); Mean Corpuscular Volume 93.1 fL (80.0-94.0); Platelet Count 155 10^3/uL (130-400); Red Cell Dist. Width 11.4 % (11.5-14.5)
[2024-12-04 06:33] LABS: ALT (SGPT) 28 U/L (0-50); AST (SGOT) 22 U/L (17-59); Albumin 3.7 g/dl (3.5-5.0); Alkaline Phosphatase 55 U/L (38-126); Blood Urea Nitrogen 6 mg/dl (9-20); Calcium 9.0 mg/dl (8.4-10.2); Carbon Dioxide 26 mmol/L (22-30); Chloride 101 mmol/L (98-107); Estimated Creatinine Clearance > 125 ml/min; Glucose 84 mg/dl (70-99); Lipase 495 U/L (23-300); Potassium 4.2 mmol/L (3.5-5.1); Sodium 134 mmol/L (135-145); Total Protein 6.5 g/dl (6.3-8.2); eGFR > 60.00
[2024-12-04 07:40] VITALS: BP 137/83
[2024-12-04] MEDS: FOLVITE 1 MG PO (09:08)
[2024-12-04] MEDS: BUSPAR 15 MG PO (09:08)
[2024-12-04] MEDS: KEPPRA 250 MG PO (09:08)
[2024-12-04] MEDS: THIAMINE INJECTION 200 MG IV (09:09)
[2024-12-04 12:38] VITALS: BP 136/79
--- NOTE | 2024-12-04 12:41 | W.PN.HOSP.TC ---
Today's Communication/Plan
-
dc
Assessment / Plan
Assessment / Plan
Assessment:
Acute, Alcohol-induced pancreatitis
- CT: Findings consistent with acute interstitial that pancreatitis without evidence of peripancreatic collection. There is mild stranding along the second/third portion the duodenum which may represent reactive duodenitis. Mild hepatic steatosis.
- diet: LFD at discharge
- Lipase: 1094 to 2275, now 495
- dc home.
Alcohol use disorder
- Last drink on 11/29 per patient
- History of withdrawal with seizures in the past
- MSAS protocol
- consult case management/[facility] evaluated; patient will self-rehab.
Nicotine abuse/marijuana use
- Nicotine patch
Anxiety
- Continue BuSpar, clonazepam, trazodone
- PDMP reviewed
Hx of Seizure disorder from alcohol withdrawal
- Continue Keppra
DVT ppx: Lovenox
Code: Full
More than 30 minutes spent in discharge including
Final examination of the patient
Summarizing hospital stay
Instructions for continuing care to all relevant caregivers
Preparation of discharge records, prescriptions, and referral forms
Total time spent (in minutes):
Anticipated Discharge: Today
Subjective/Interval History
-
Date of Service: December 04, 2024
tolerating full liquids
Lipase improved
Objective Data
-
Labs:
Laboratory Results
12/04/24
05:28
WBC 8.2
Hgb 13.4
Hct 37.5 L
Plt Count 155
Sodium 134 L
Potassium 4.2
Chloride 101
Carbon Dioxide 26
BUN 6 L
Creatinine 0.6 L
Glucose 84
Calcium 9.0
Total Bilirubin 1.5 H
AST 22
ALT 28
Alkaline Phosphatase 55
Vital Signs:
Vital Signs
Temp Pulse Resp BP Pulse Ox
98.8 F 91 16 136/79 98
12/04/24 12:38 12/04/24 12:38 12/04/24 12:38 12/04/24 12:38 12/04/24 12:38
I&O
12/03/24 12/04/24 12/05/24
06:59 06:59 06:59
Intake Total 960 / 960 1440 / 1440
Balance 960 / 960 1440 / 1440
Physical Exam
-
General: No Apparent Distress
HEENT: Normocephalic and Atraumatic
Respiratory: Negative Wheezes
Cardiac: Regular Rhythm and S1/S2
GI: Soft and Nontender
Musculoskeletal: No Edema
Neuro: AO x 3
Psych: Calm
Data Reviewed
-
Total Time Spent with Patient (in minutes): 41
Labs: Labs Reviewed by me
--- NOTE | 2024-12-04 12:42 | W.DCSUMMARY ---
Discharge Summary
Discharge Data
Date of Admission: 12/02/24
Date of Discharge: 12/04/24
-
Pending Results: No
Hospital Course
29 y/o M with history of alcohol pancreatitis presented on 12/02 with diffuse abdominal pain, bloating. He was found to have elevated lipase (peaking at 2275) and CT evidence of acute pancreatitis - patient admitted to binge drinking while on
vacation. He was admitted on clear liquid diet and aggressive IVF. His symptoms improve over 48 hours and the lipase level was down to 495 at discharge. He was able to tolerate a low fat diet prior to discharge. He was evaluated by [facility] and case
management and resources were shared with patient for rehab. He was discharged home
Discharge Plan
-
Patient Disposition: Home (Routine Discharge)
Discharge Diagnosis/Procedures: Alcohol induced pancreatitis
Condition: Fair
Diet: Low Fat
Activity: As tolerated
Bathing Restrictions: None
Referrals:
Shaji Amaro MD [Family Provider, Family Practice]
Prescriptions:
Continued
trazodone 50 mg Tablet
50 mg PO HSPRN PRN (Reason: sleep)
clonazepam 0.5 mg Tablet
0.75 mg PO DAILYPRN PRN (Reason: anixety)
buspirone 15 mg Tablet
15 mg PO BID
levetiracetam [Keppra] 250 mg Tablet
250 mg PO DAILY
Discharge Orders:
Discharge Patient (As Directed); Ordered 12/04/24
Ordered By: Elvis Slater
Discharge Date and Time
Print Language: TAMAZIGHT
--- NOTE | 2024-12-04 13:52 | CM ---
Pt cleared for discharge to home today. No identified needs per patient report; [facility] declined, pt plans to stay sober on his own with in agreement with no ETOH in the house.
Plan: Discharge to home today with no needs.
== END 2024-12-04 14:01 | disposition home or self-care (01) | DRG 440 ==
LOC: 3 WEST ACU 09:43
PROVIDERS: Student in an Organized Health Care Education/Training Program; ADMITTING PHYSICIAN Internal Medicine; EMERGENCY PHYSICIAN Emergency Medicine; FAMILY PHYSICIAN Family Medicine
DX: K85.90 Acute pancreatitis without necrosis or infection, unspecified (principal); F10.10 Alcohol abuse, uncomplicated; F41.9 Anxiety disorder, unspecified; G40.909 Epilepsy, unspecified, not intractable, without status epilepticus; K76.0 Fatty (change of) liver, not elsewhere classified; K29.80 Duodenitis without bleeding; F17.290 Nicotine dependence, other tobacco product, uncomplicated
CPT/HCPCS: 74177; 80053; 80306; 80307; 83690; 83735; 85025; 85027; 96361; 96374; 96375; 96376; 99285; Q9967